=== PATIENT | female | born 1985 | race Two or more races ===

== ENCOUNTER → 2022-12-13 11:30 | Outpatient (BNVA) | payer OTHER, SELFPAY | PROVIDERS: Visit Provider Surgery ==

== ENCOUNTER → 2023-01-09 09:58 | Outpatient (BNVA) | payer OTHER, SELFPAY | PROVIDERS: Visit Provider Physician Assistant Surgical | DX: E66.01 Morbid (severe) obesity due to excess calories (principal); R06.83 Snoring; Z68.42 Body mass index [BMI] 45.0-49.9, adult | CPT/HCPCS: 99202 ==

== ENCOUNTER 2023-01-10 11:41 | Outpatient (REF) | payer OTHER, SELFPAY ==
[2023-01-15 05:17] LABS: Vitamin A 45 mcg/dL (38-98)
[2023-01-15 14:53] LABS: Vitamin B1 9 nmol/L (8-30)
[2023-01-16 09:08] LABS: H Pylori Breath Test Negative (Negative)
== END 2023-01-10 11:42 | disposition home or self-care (01) ==
LOC: HO.LAB 11:41
PROVIDERS: Visit Provider Physician Assistant Surgical
DX: Z11.2 Encounter for screening for other bacterial diseases (principal); E66.01 Morbid (severe) obesity due to excess calories
CPT/HCPCS: 36415; 80053; 80061; 82306; 82607; 82728; 82746; 83013; 83036; 83525; 83540; 83970; 84425; 84443; 84590; 84630; 85025; 86140; 99211

== ENCOUNTER 2023-01-13 09:03 | Outpatient (REF) | payer OTHER, SELFPAY ==
--- NOTE | ~2023-01-13 | US_ITS ---
EXAMINATION: US COMPLETE ABDOMEN WITH LIVER ELASTOGRAPHY CLINICAL INFORMATION: Obesity. COMPARISON: None available. TECHNIQUE: Real-time imaging of the abdominal viscera. Noninvasive ultrasound liver fibrosis assessment is performed using Leigha ElastPQ point quantification shear wave elastography (2D-SWE) with a C5-2 MHz transducer. Multiple elastography samples are obtained. Imaging is limited by body habitus. FINDINGS: PANCREAS: Normal. The visualized pancreatic head and body are normal in appearance. The remainder of the pancreas is obscured from visualization by the overlying bowel gas. ABDOMINAL AORTA: The proximal, middle, and distal aortic segments are normal in caliber. INFERIOR VENA CAVA: Visualized portions are normal. LIVER: The liver demonstrates normal size, contour and generally increased echogenicity. No focal lesion or intrahepatic biliary duct dilatation. The right lobe measures 17.2 cm in length. The left lobe measures 11.7 cm in length. Portal flow is towards the liver (hepatopetal). Shear wave liver elastography median stiffness is 1.32 m/s (reference: normal median stiffness is 1.3 m/s or less). IQR/median stiffness to assess sampling precision is 0.09 (reference: good quality data set is IQR/median stiffness of 0.15 or less). GALLBLADDER: Normal. The gallbladder is physiologically distended without evidence of stones, sludge, polyps, wall thickening or pericholecystic fluid. COMMON BILE DUCT: Normal in caliber measuring 0.5 cm in diameter. RIGHT KIDNEY: Normal. No hydronephrosis. No renal calculi or focal parenchymal lesions. The kidney measures 12.9 cm in maximum dimension. LEFT KIDNEY: Normal. No hydronephrosis. No renal calculi or focal parenchymal lesions. The kidney measures 12.5 cm in maximum dimension. SPLEEN: Normal. The spleen measures 11.7 cm in maximum dimension. FREE FLUID: None. US/US abdomen comp w elastography IMPRESSION: 1. There is generalized increase in hepatic echotexture, consistent with fatty infiltration or hepatocellular disease. Please correlate clinically. No focal hepatic mass or intrahepatic biliary dilatation is seen. 2. Liver elastography: In the absence of other known clinical signs, measurements rule out compensated advanced chronic liver disease. If there are known clinical signs, further testing may be needed for confirmation. REFERENCE: Society of Radiologists in Ultrasound Liver Stiffness Thresholds (2020): LIVER STIFFNESS THRESHOLDS: *Liver Stiffness equal or less than 1.3 m/s: High probability of being normal. *Liver Stiffness less than 1.7 m/s: In the absence of other known clinical signs, rules out compensated advanced chronic liver disease. *Liver Stiffness 1.7-2.1 m/s: Suggestive of compensated advanced chronic liver disease but need further test for confirmation. *Liver Stiffness over 2.1 m/s: Rules in compensated advanced chronic liver disease. *Liver Stiffness over 2.4 m/s: Suggestive of clinically significant portal hypertension. QUALITY OF DATA SET: *IQR/Median value equal or less than 0.15 implies a quality data set. *IQR/Median value over 0.15 implies a poor quality data set. SIGNIFICANT CHANGE FROM PRIOR EXAM: Significant change if liver stiffness measurement is 10% or greater from prior exam. OTHER CONSIDERATIONS: The stage of liver fibrosis may be overestimated in the setting of acute hepatitis, liver inflammation, elevated liver function tests, hepatic vascular congestion, obstructive cholestasis, non-fasting state, and infiltrative diseases such as amyloidosis and lymphoma. In some patients with NAFLD, the liver stiffness thresholds for compensated advanced chronic liver disease may be lower. In causes other than viral hepatitis and NAFLD, liver stiffness thresholds are not well established.
--- NOTE | ~2023-01-13 | XR_ITS ---
EXAMINATION: XR CHEST CLINICAL INFORMATION: Morbid obesity. Preop. COMPARISON: None available. TECHNIQUE: 2 views of the chest were obtained. FINDINGS: Lung volumes are diminished resulting in crowding of bronchovascular structures. There may be subsegmental atelectasis within the left lower lobe. The lungs are otherwise clear. Cardiomediastinal contours are unremarkable. No pleural effusion or pneumothorax there is dextroscoliotic curvature of the midthoracic spine. Structures of the chest wall are intact. XR/XR chest 2V IMPRESSION: Possible subsegmental atelectasis in the left lower lobe, otherwise no acute process.
== END 2023-01-13 09:04 | disposition home or self-care (01) ==
LOC: HO.US 09:03
PROVIDERS: Visit Provider Physician Assistant Surgical
DX: E66.01 Morbid (severe) obesity due to excess calories (principal)
CPT/HCPCS: 71046; 76705; 76981

== ENCOUNTER → 2023-01-17 07:13 | Outpatient (REF) | payer OTHER, SELFPAY ==
--- NOTE | 2023-01-17 07:19 | ECG_ITS ---
Test Reason : e66.01 Blood Pressure : / mmHG Vent. Rate : 066 BPM Atrial Rate : 066 BPM P-R Int : 200 ms QRS Dur : 086 ms QT Int : 414 ms P-R-T Axes : 050 004 044 degrees QTc Int : 434 ms Normal sinus rhythm Cannot rule out Anterior infarct , age undetermined Abnormal ECG No previous ECGs available Referred By: Norman Higginbotham Electronically Signed By:JHONATHAN PRICE MD
== END ==
LOC: HO.CARD 07:13
PROVIDERS: PCP Internal Medicine; Visit Provider Physician Assistant Surgical
DX: E66.01 Morbid (severe) obesity due to excess calories (principal)
CPT/HCPCS: 93005

== ENCOUNTER → 2023-01-17 07:19 | Outpatient (BNV) | payer OTHER, SELFPAY | PROVIDERS: PCP Internal Medicine; Visit Provider Internal Medicine Cardiovascular Disease | DX: R94.31 Abnormal electrocardiogram [ECG] [EKG] (principal) | CPT/HCPCS: 93010 ==

== ENCOUNTER 2023-01-20 14:00 | Outpatient (AMB) | payer OTHER, SELFPAY ==
--- NOTE | 2023-01-20 14:21 | A.OFFWM_ITS ---
Intake Intake Visit Reasons: VIDEO Intake Allergies shellfish derived Allergy (Mild, Verified 01/10/23 12:11) Hives [facility] Surgical History Hx of section Family History Mother Diabetes Father No problems noted. Brother No problems noted. Sister No problems noted. Son Asthma Daughter No problems noted. Daughter No problems noted. Daughter No problems noted. Social History Alcohol intake: current Alcohol intake frequency: holidays/special occasions only Patient Tobacco Use Status: Never used Tobacco Behavioral Health Assessment Weight Management Therapy Therapy Notes Details PT is a 37 year old female who presents for initial assessment as part of surgical Weight management program. Presenting Concerns0 Referral Source WMP Provider. Reason for referral Completion of behavioral health assessment as part of process for weight-loss surgery. Precipitating Event Obesity. Living Situation Current Living Situation Rent At risk of losing current housing? No Satisfied with current living situation? Yes Comments Pt lives with 4 children. Food/Weight/Diet Expectations of change PT wants to be down to her expected BMI. Goal is to lose 10% of your weight before surgery, which is about 27 lbs. Ultimate weight goal: 250 lbs. before surgery History/Relationship with food PT reports she doesn't have a strong appetite. She tends to skip meals, always have dinner. Dinner is basically composed by protein, Carbs and veggies. Sometimes they have more than 1 carb at meal. Sometimes she snacks during the day might have a granola bar, cheese and crackers, a yogurt. She likes cookies, ice cream, cake. Has sweets 3-4 times at week. History/Relationship with weight She has always been overweight. After last , Jun 2020 she noticed her weight was the highest. History/Relationship with dieting PT has tried low-carb diet, Atkins, weight watchers (effective but got too expensive), beach body. She reports she tries programs for couple months. Got down to 260Lb using the low-carb diet, gained all the weight back once went back to old habits. Binge Eating Do you frequently eat large amounts of food in short periods of time, not feeling physically hungry? No Do you feel out of control when you eat a large amount of food in a short period of time? No Do you eat large amounts of food rapidly and typically alone? No Night Eating Do you wake up at least once during the night to eat? No If you wake up in the night, do you find that it is necessary to eat something in order to fall back asleep? No Do you have little or no appetite in the morning and feel very hungry in the evening, often overeating between dinner and when you go to bed? No Social History Family history and relationship PT is single. She has 2 siblings, they have a good relationship. Mom is alive, They are very close. Dad . 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 (12, 3, set of 2y/o twins). Developmental history and status None reported. Social support Mother, sister. Community support Providers. Moravian/Spirituality None. Cultural/Ethnic information Mixed, /. Legal Involvement and History Current or historical involvement with the legal system? None reported. Education Highest grade completed Associate degreed. Preferred learning style Auditory, Verbal, Written, Learn by doing and Visual Currently enrolled in educational program? No Interested in further educational program? Yes Educational Interests/Skills Wants to become a mental health clinician. 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 ) Wants help to find employment? No Meaningful activities Family activities, nails/hair/lashes(beauty self-care). Financial Situation Describe current financial situation Comfortable and Occasional struggle Financial assistance? Food [employer]? No Mental Health and Addiction Treatment0 Current/Past substance abuse? No Comments Cannabis use. Smokes/edibles 1 at day, 3-4 times at week. Current/Past addictive behavior concerns? No Psychiatric history None reported. Medical and Physical Health Summary Additional Medical History not covered in history None reported. Sexual History concerns None reported. Physical exam in the last year? Yes Pain Screening Current pain? No Pain in the last few months? Yes (Legs, occasionally back pain. ) Medications Is the patient compliant with medications? Yes Does the patient have Mayer Guardian in place? Not applicable Does the patient use complimentary health approaches? No Trauma/Abuse History History of trauma? No Questionnaires PHQ-9 Over the last 2 weeks, how often have you been bothered by any of the following problems? 1. Little interest or pleasure in doing things: not at all 2. Feeling down, depressed, or hopeless: not at all 3. Trouble falling or staying asleep, or sleeping too much: not at all 4. Feeling tired or having little energy: not at all 5. Poor appetite or overeating: not at all 6. Feeling bad about yourself - or that you are a failure or have let yourself or your family down: not at all 7. Trouble concentrating on things, such as reading the newspaper or watching television: not at all 8. Moving or speaking so slowly that other people could have noticed. Or the opposite - being so fidgety or restless that you have been moving around a lot more than usual: not at all 9. Thoughts that you would be better off or of hurting yourself in some way: not at all Total score: 0 Depression Screening Interpretation: Negative Source: Developed by Drs. Kodak Mark, Arin Barnard, Atilio Short and colleagues, with an educational tyrone from [employer]. Binge Eating Scale Group 1 A. I don't feel self-conscious about my wt. or body size when I'm with others. B. I feel concerned about how I look to others, but it normally does not make me fell disappointed with myself C. I do get self-conscious about my appearance and wt. which makes me feel disappointed in myself. D. I feel very self-conscious about my wt. and frequently I feel intense shame and disgust for myself. I try to avoid social contacts because of my self- consciousness. Response Group 1: D Group 2 A. I don't have any difficulty eating slowly in the proper manner. B. Although I seem to gobble down foods, I don't end up feeling stuffed because of eating to much. C. At times, I tend to eat quickly and then, I feel uncomfortably full afterwards. D. I have the habit of bolting down my food, without really chewing it. When this happens I usually feel uncomfortably stuffed because I've eaten to much. Response Group 2: A Group 3 A. I feel capable to control my eating urges when I want to. B. I feel like I have failed to control my eating more than the average person. C. I feel utterly helpless when it comes to feeling in control of my eating urges. D. Because I feel so helpless about controlling my eating I have become very desperate about trying to get control. Response Group 3: D Group 4 A. I don't have the habit of eating when I'm bored. B. I sometimes eat when I'm bored, but often I'm able to get busy and get my mind off food. C. I have a regular habit of eating when I'm bored, but occasionally, I can use some other activity to get my mind off eating. D. I have a strong habit of eating when I'm bored. Nothing seems to help me breath the habit. Response Group 4: B Group 5 A. I'm usually physically hungry when I eat something. B. Occasionally, I eat something on impulse even though I really am not hungry. C. I have the regular habit of eating foods, that I might not really enjoy, to satisfy a hungry feeling even though physically, I don't need the food. D. Although I'm not physically hungry, I get a hungry feeling in my mouth that only seems to be satisfied when I eat a food, like sandwich, that fills my mouth. Sometimes, when I eat the food to satisfy my mouth hunger, I then spit the food out so I won't gain weight. Response Group 5: A Group 6 A. I don't feel any guilt or self-hate after I overeat. B. After I overeat, occasionally I feel guilt or self-hate. C. Almost all the time I experience strong guilt or self-hate after I overeat. Response Group 6: C Group 7 A. I don't lose total control of my eating when dieting even after periods when I overeat. B. Sometimes when I eat a forbidden food on a diet, I feel like I blew it and eat even more. C. Frequently, I have the habit of saying to myself, I've blown it now, why not go all the way, when I overeat on a diet. When that happens I eat more. D. I have a regular habit of starting a strict diets for myself but I break the diets by going on an eating binge. My life seems to be either a feast or famine. Response Group 7: C Group 8 A. I rarely eat so much food that I feel uncomfortably stuffed afterwards. B. Usually about once a month, I each such a quantity of food, I end up feeling very stuffed. C. I have regular periods during the month when I eat large amounts of food, either at mealtime or at snacks. D. I eat so much food that I regularly feel quite uncomfortable after eating and sometimes a bit nauseous. Response Group 8: B Group 9 A. My level of calorie intake does not go up very high or go down very low on a regular basis. B. Sometimes after I overeat, I will try to reduce my caloric intake to almost nothing to compensate for the excess calories I've eaten. C. I have a regular habit of overeating during the night. It seems that my routine is not to be hungry in the morning but overeat in the evening. D. In my adult years, I have had week-long periods where I practically starve myself. This follows periods when I overeat. It seems I live a life of either feast or famine. Response Group 9: B Group 10 A. I usually am able to stop eating when I want to. I know when enough is enough. B. Every so often, I experience a compulsion to eat which I can't seem to control. C. Frequently, I experience strong urges to eat which I seem unable to control, but at other times I can control my eating urges. D. I feel incapable of controlling urges to eat. I have a fear of not being able to stop eating voluntarily. Response Group 10: C Group 11 A. I don't have any problem stopping eating when I feel full. B. I usually can stop eating when I feel full but occasionally overeat leaving me feeling uncomfortably stuffed. C. I have a problem stopping eating once I start and usually I feel uncomfortably stuffed after I eat a meal. D. Because I have a problem not being able to stop eating when I want, I sometimes have to induce vomiting to relieve my stuffed feeling. Response Group 11: B Group 12 A. I seem to eat just as much when I'm with others, Family social gatherings as when I'm by myself. B. Sometimes, when I'm with other persons, I don't eat as much as I want to eat because I'm self-conscious about my eating. C. Frequently, I eat only a small amount of food when others are present, because I'm very embarrassed about my eating. D. I feel so ashamed about overeating that I pick times to overeat when I know no one will see me. I feel like a closet eater. Response Group 12: C Group 13 A. I eat three meals a day with only an occasional between meal snack. B. I eat 3 meals a day, but I also normally snack between meals. C. When I am snacking heavily, I get in the habit of skipping regular meals. D. There are regular periods when I seem to be continually eating, with no planned meals. Response Group 13: A Group 14 A. I don't think much about trying to control unwanted eating urges. B. At least some of the time, I feel my thoughts are pre-occupied with trying to control my eating urges. C. I feel that frequently I spend much time thinking about how much I ate or about trying not to eat anymore. D. It seems to me that most of my waking hours are pre-occupied by thoughts about eating or not eating. I feel like I'm constantly struggling not to eat. Response Group 14: B Group 15 A. I don't think about food a great deal. B. I have strong craving for food but they last only for brief periods of time. C. I have days when I can't seem to think about anything else but food. D. Most of my days seem to be pre-occupied with thoughts about food. I feel like I live to eat. Response Group 15: B Group 16 A. I usually know whether or not I'm physically hungry. I take the right portion of food to satisfy me. B. Occasionally, I feel uncertain about knowing whether or not I'm physically hungry. A these times it's hard to know how much food I should take to satisfy me. C. Even though I might know how many calories I should eat, I don't have any idea what is a normal amount of food for me. Response Group 16: B Binge Eating Score: 21 Score less than 17 Minimal Risk Score between 18-26 Moderate Risk Score between 27-46 High Risk Assessment & Plan Assessment & Plan (1) Eating disorder: Code(s): F50.9 - Eating disorder, unspecified Qualifiers: Eating disorder type: unspecified eating disorder Qualified Code(s): F50.9 - Eating disorder, unspecified Plan Pt is cleared from the behavioral health standpoint but will have a f/up with provider to monitor adjustment to described challenges with program expectations. F/up in 1 month. Telehealth Telehealth Location of provider rendering services: other (home office. [place] Location of patient: address on file Patient Identification confirmed using: Name, : Yes Telehealth method: video Patient verbally consented to treatment: Yes Patient verbally consented to billing insurance company: Yes Patient informed of any privacy concerns related to visit: Yes Minutes spent on Phone/Video with Pt.: 60 Coding Level of Care Code New Pt Tele Psy Diag Cinthyaal ([id number]) Patient Type New Diagnoses Eating disorder F50.9 Eating disorder type: unspecified eating disorder Time Spent (min) 60
== END 2023-01-20 15:58 | disposition home or self-care (01) ==
LOC: HO.HBST 14:22
PROVIDERS: PCP Internal Medicine; Referring Provider Physician Assistant Surgical; Visit Provider Counselor Mental Health
DX: F50.9 Eating disorder, unspecified (principal)
CPT/HCPCS: 90791

== ENCOUNTER → 2023-01-20 14:00 | Outpatient (BNVA) | payer OTHER, SELFPAY | PROVIDERS: PCP Internal Medicine; Referring Provider Physician Assistant Surgical; Visit Provider Counselor Mental Health ==

== ENCOUNTER → 2023-01-27 07:59 | Outpatient (REF) | payer OTHER, SELFPAY ==
--- NOTE | 2023-01-27 08:02 | CA_ITS ---
Acquisition Time: 2023-01-27 08:18:15 Total Exercise Time: 00:06:22 Test Indications: Abnormal ECG Medications: LEVOTHYROXINE Protocol: SUSIE Max HR: 164 BPM 88% of Pred: 185 BPM Max BP: 148/082 mmHG Max Work Load: 7.3 METS Exercise stress test exercise 6 min 22 sec of Susie protocol, achieivng 88% MPHR, 7.23 METs with moderate SOB, no chest discomfort, with isolated PVCs, with normotensive response to exercise. Breathing returned to normal with rest. Test reviewed with Dr Rose. Referred By: Norman Higginbotham Overread By: Aleah Landeros
== END ==
LOC: HO.CARD 07:59
PROVIDERS: PCP Internal Medicine; Visit Provider Physician Assistant Surgical
DX: R94.31 Abnormal electrocardiogram [ECG] [EKG] (principal)
CPT/HCPCS: 93017

== ENCOUNTER → 2023-01-27 08:02 | Outpatient (BNV) | payer OTHER, SELFPAY | PROVIDERS: PCP Internal Medicine; Visit Provider Nurse Practitioner | DX: R94.31 Abnormal electrocardiogram [ECG] [EKG] (principal) | CPT/HCPCS: 93016; 93018 ==

== ENCOUNTER → 2023-02-11 15:50 | Outpatient (BNVA) | payer OTHER, SELFPAY | PROVIDERS: PCP Internal Medicine; Referring Provider Physician Assistant Surgical; Visit Provider Dietitian, Registered ==

== ENCOUNTER 2023-02-12 07:56 | Outpatient (REF) | payer OTHER, SELFPAY ==
--- NOTE | ~2023-02-12 | FL_ITS ---
EXAMINATION: XR FLUOROSCOPY UPPER GI WITH AIR CLINICAL INFORMATION: Obesity COMPARISON: None available. TECHNIQUE: Upper GI was performed using thin and thick barium and effervescent granules FINDINGS: Esophageal motility is normal. There is mild gastroesophageal reflux. No significant hernia is seen. The stomach and duodenum are normal. No fold thickening, mass, ulcer or stricture. FLUOROSCOPY TIME: 0.4 minutes DOSE AREA PRODUCT: 4.8 Ybarra per centimeter square. Total dose 21 mgy. 20 saved fluoroscopic images. FL/FL upper GI w air IMPRESSION: Gastroesophageal reflux otherwise unremarkable exam.
== END 2023-02-12 07:57 | disposition home or self-care (01) ==
LOC: HO.XRAY 07:56
PROVIDERS: PCP Internal Medicine; Visit Provider Physician Assistant Surgical
DX: E66.01 Morbid (severe) obesity due to excess calories (principal); K21.9 Gastro-esophageal reflux disease without esophagitis
CPT/HCPCS: 74246

== ENCOUNTER → 2023-02-12 07:57 | Outpatient (BNV) | payer OTHER, SELFPAY | PROVIDERS: PCP Internal Medicine; Visit Provider Radiology Diagnostic Radiology | DX: E66.01 Morbid (severe) obesity due to excess calories (principal); Z01.818 Encounter for other preprocedural examination | CPT/HCPCS: 74246 ==

== ENCOUNTER 2023-02-17 12:00 | Outpatient (AMB) | payer OTHER, SELFPAY ==
--- NOTE | 2023-02-17 12:06 | MHC.WMTHER ---
Intake Intake Visit Reasons: VIDEO f/u Allergies shellfish derived Allergy (Mild, Verified 01/10/23 12:11) Hives [facility] Surgical History Hx of section Family History Mother Diabetes Father No problems noted. Brother No problems noted. Sister No problems noted. Son Asthma Daughter No problems noted. Daughter No problems noted. Daughter No problems noted. Social History Alcohol intake: current Alcohol intake frequency: holidays/special occasions only Patient Tobacco Use Status: Never used Tobacco Behavioral Health Assessment Weight Management Therapy Therapy Notes Details PT presents for a f/up. She had assessment on 01/20. PT reports struggling to follow meal plan as she doesn't have a set schedule for brakes/meals. INTERVENTIONS: Processed barriers to stick to plan/program expectations. Problem solving exercise, supporting client to identify strategies/tips such as set an alarm for meals, smart watch to track exercise/physical activity. Gentle challenge around expectations, her goals/current behaviors. RESPONSE: PT was active and cooperative. PLAN: PT is cleared from the standpoint, however it is recommended a f/up in about a month to support with habit building/accountability. Presenting Concerns Referral Source P Provider. Reason for referral Completion of behavioral health assessment as part of process for weight-loss surgery. Precipitating Event Obesity. Living Situation Current Living Situation Rent At risk of losing current housing? No Satisfied with current living situation? Yes Comments Pt lives with 4 children. Food/Weight/Diet Expectations of change PT wants to be down to her expected BMI. Goal is to lose 10% of your weight before surgery, which is about 27 lbs. Ultimate weight goal: 250 lbs. before surgery History/Relationship with food PT reports she doesn't have a strong appetite. She tends to skip meals, always have dinner. Dinner is basically composed by protein, Carbs and veggies. Sometimes they have more than 1 carb at meal. Sometimes she snacks during the day might have a granola bar, cheese and crackers, a yogurt. She likes cookies, ice cream, cake. Has sweets 3-4 times at week. History/Relationship with weight She has always been overweight. After last , Jun 2020 she noticed her weight was the highest. History/Relationship with dieting PT has tried low-carb diet, Atkins, weight watchers (effective but got too expensive), beach body. She reports she tries programs for couple months. Got down to 260Lb using the low-carb diet, gained all the weight back once went back to old habits. Binge Eating Do you frequently eat large amounts of food in short periods of time, not feeling physically hungry? No Do you feel out of control when you eat a large amount of food in a short period of time? No Do you eat large amounts of food rapidly and typically alone? No Night Eating Do you wake up at least once during the night to eat? No If you wake up in the night, do you find that it is necessary to eat something in order to fall back asleep? No Do you have little or no appetite in the morning and feel very hungry in the evening, often overeating between dinner and when you go to bed? No Social History Family history and relationship PT is single. She has 2 siblings, they have a good relationship. Mom is alive, They are very close. Dad . 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 (12, 3, set of 2y/o twins). Developmental history and status None reported. Social support Mother, sister. Community support Providers. Episcopalian/Spirituality None. Cultural/Ethnic information Mixed, /. Legal Involvement and History Current or historical involvement with the legal system? None reported. Education Highest grade completed Associate degreed. Preferred learning style Auditory, Verbal, Written, Learn by doing and Visual Currently enrolled in educational program? No Interested in further educational program? Yes Educational Interests/Skills Wants to become a mental health clinician. 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 ) Wants help to find employment? No Meaningful activities Family activities, nails/hair/lashes(beauty self-care). Financial Situation Describe current financial situation Comfortable and Occasional struggle Financial assistance? Food [place] Service Service? No Mental Health and Addiction Treatment Current/Past substance abuse? No Comments Cannabis use. Smokes/edibles 1 at day, 3-4 times at week. Current/Past addictive behavior concerns? No Psychiatric history None reported. Medical and Physical Health Summary Additional Medical History not covered in history None reported. Sexual History concerns None reported. Physical exam in the last year? Yes Pain Screening Current pain? No Pain in the last few months? Yes (Legs, occasionally back pain. ) Medications Is the patient compliant with medications? Yes Does the patient have Mayer Guardian in place? Not applicable Does the patient use complimentary health approaches? No Trauma/Abuse History History of trauma? No Telehealth Telehealth Location of provider rendering services: other (home office. [place] Location of patient: other (Work. [place]) Patient Identification confirmed using: Name, : Yes Telehealth method: video Patient verbally consented to treatment: Yes Patient verbally consented to billing insurance company: Yes Patient informed of any privacy concerns related to visit: Yes Minutes spent on Phone/Video with Pt.: 45 Coding Level of Care Code Established Pt Tele Psytx 45 mins ([id number]) Patient Type Established Diagnoses Time Spent (min) 30 Comment 12:00-12:45pm
== END 2023-02-17 13:04 | disposition home or self-care (01) ==
LOC: HO.HBST 12:13
PROVIDERS: PCP Internal Medicine; Visit Provider Counselor Mental Health
DX: Z01.818 Encounter for other preprocedural examination (principal); Z13.39 Encounter for screening examination for other mental health and behavioral disorders; E66.01 Morbid (severe) obesity due to excess calories; Z68.42 Body mass index [BMI] 45.0-49.9, adult
CPT/HCPCS: 90834

== ENCOUNTER → 2023-02-17 12:00 | Outpatient (BNVA) | payer OTHER, SELFPAY | PROVIDERS: PCP Internal Medicine; Visit Provider Counselor Mental Health ==

== ENCOUNTER → 2023-02-19 08:59 | Outpatient (REF) | payer OTHER, SELFPAY | LOC: HO.SL 08:59 | PROVIDERS: PCP Internal Medicine; Visit Provider Physician Assistant Surgical | DX: E66.01 Morbid (severe) obesity due to excess calories (principal); R06.83 Snoring | CPT/HCPCS: 95806 ==

== ENCOUNTER → 2023-02-19 09:11 | Outpatient (BNV) | payer OTHER, SELFPAY | PROVIDERS: PCP Internal Medicine; Visit Provider Internal Medicine | DX: R06.83 Snoring (principal) | CPT/HCPCS: 95806 ==

== ENCOUNTER 2023-03-24 13:32 | Outpatient (AMB) | payer OTHER, SELFPAY ==
--- NOTE | 2023-03-24 13:01 | A.OFFVIS_ITS ---
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 They were last seen in the office on 01/09/23, recorded weight at that time was 277 pounds, with a BMI of 47.5. Today's weight is 266 pounds and BMI is 45.7. There has been a weight loss of 11 pounds since initiating the surgical weight loss program on 01/09/23 with a total body weight loss of 3.97 %. Pre op work up completed as follows: SWL classes:? 08/14 BH appts: cleared 01/20/23 ? ? RD appts: 04/07/23 Labs: 01/10/23-low D, B12:413 H. pylori: -neg CXR: 01/20/23-? left subsegmental atelectasis EK01/17/23-cannot r/o anterior infarct. Exercise stress test 01/27/23-normal. 03/02/23 sleep study normal ABD U/S: 01/13/23-fatty liver UGI: 02/12/23-GERD The patient reports she has not been following the meal plan as directed. She is not drinking the protein shakes. She states she doesn't like them. She is eating the ZP bar. She is a can of tuna, one slice of salmon. She is not m easuring by forkfuls. She states she didn't like the Orgain too much. Requests a new plan Current meal plan includes: Not following any plan Drinking 64-96 oz of water Current exercise plan includes: walking outside, 3 x per week. not tracking calories, PFSH Surgical History Hx of section Family History Mother Diabetes Father No problems noted. Brother No problems noted. Sister No problems noted. Son Asthma Daughter No problems noted. Daughter No problems noted. Daughter No problems noted. Social History Alcohol intake: current Alcohol intake frequency: holidays/special occasions only Patient Tobacco Use Status: Never used Tobacco Assessment & Plan Assessment & Plan (1) Morbid obesity: Code(s): E66.01 - Morbid (severe) obesity due to excess calories Plan: Change meal plan to: 3 Premier Protein shakes ([employer], [employer], [employer], [employer]) First shake (2 scoops in 8 oz low fat unsweetened almond milk) at 7am-9am, Second shake (1 scoops in 8 oz low fat unsweetened almond milk) at 11am-1pm 1 protein bar (Zone Perfect or Zone Macro bars at [employer], [facility], or [employer]) at 3pm- 5pm. Dinner at 6pm (8 forks of protein and 8 forks of salad/vegetables). Another shake with 1/2 scoop in 8 oz unsweetened almond milk at 8pm-10pm. Increase exercise and track calories Discussed the importance of following the plans and communicating if any issues, she had not been communicating and not following plans. rtc 3 weeks. reminded of upcoming appts Telehealth Telehealth Location of provider rendering services: practice address Location of patient: other Patient Identification confirmed using: Name, : Yes Telehealth method: video Patient verbally consented to treatment: Yes Patient verbally consented to billing insurance company: Yes Patient informed of any privacy concerns related to visit: Yes Minutes spent on Phone/Video with Pt.: 20 Coding Level of Care Code Tele Est Pt Level 4 (83217) Diagnoses Morbid obesity E66.01 Time Spent (min) 35
[2023-03-24 13:02] VITALS: BMI 45.7
== END 2023-03-24 13:38 | disposition home or self-care (01) ==
LOC: HO.HBS 13:32
PROVIDERS: PCP Internal Medicine; Visit Provider Physician Assistant Surgical
DX: E66.01 Morbid (severe) obesity due to excess calories (principal); Z68.42 Body mass index [BMI] 45.0-49.9, adult
CPT/HCPCS: 99214

== ENCOUNTER → 2023-03-24 13:32 | Outpatient (BNVA) | payer OTHER, SELFPAY | PROVIDERS: PCP Internal Medicine; Visit Provider Physician Assistant Surgical ==

== ENCOUNTER 2023-04-07 09:29 | Outpatient (AMB) | payer OTHER, SELFPAY ==
--- NOTE | 2023-04-07 09:16 | MHC.AMNUTRGE ---
Intake VS Expanded 04/07/23 09:23 Height 5 ft 4 in Weight 264 lb BMI 45.3 Intake Visit Reasons: VIDEO Initial Nutrition [facility] Personnel Officer Required: No Allergies shellfish derived Allergy (Mild, Verified 01/10/23 12:11) Hives HPI Nutrition Presentation Reason for consult elevated BMI Diet Assmnt Details went on vacation when she first started the program and fell off Is using premier protein powder with water 2 scoops powder in each shake . does not like the bars 2-4 shakes per day tunafish on a wrap, eggs Asks about the quickest way to lose weight, explained how the nutrition plan and exercise plans accomplish body fat losss when done properly Exercise; has 4 children (3 under 3 years old) and likes to go for walks with them. 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 Doens't do it in the colder temps. She is planning to enroll kids in after school program so she will have time to go to the gym . [facility] online classes: none, completely forgot Dietary counseling reduction Diagnosis Nutrition problem #1 overweight/obesity As related to (etiology) #1 excess energy intake and physical inactivity As evidenced by (sign/symptom) #1 high BMI Monitoring/Goals Nutrition problem monitoring total energy intake, level of knowledge/skill, total PRO intake, total CHO intake and weight Outcome progress not met Learning/Education Readiness to learn fair Stages of change contemplation Educational materials provided Yes Most Recent Diabetes Results: No Data to Display [facility] Surgical History Hx of section Family History Mother Diabetes Father No problems noted. Brother No problems noted. Sister No problems noted. Son Asthma Daughter No problems noted. Daughter No problems noted. Daughter No problems noted. Social History Alcohol intake: current Alcohol intake frequency: holidays/special occasions only Patient Tobacco Use Status: Never used Tobacco Assessment & Plan Assessment & Plan (1) Morbid obesity: Code(s): E66.01 - Morbid (severe) obesity due to excess calories Patient Instructions: Encouraged being consistent , begin a consistent exercise routine. finish classes. f/u 05/07 1:30pm OV Telehealth Telehealth Location of provider rendering services: practice address Location of patient: address on file Patient Identification confirmed using: Name, : Yes Telehealth method: video Patient verbally consented to treatment: Yes Patient verbally consented to billing insurance company: Yes Patient informed of any privacy concerns related to visit: Yes Minutes spent on Phone/Video with Pt.: 30 Coding Level of Care Code Nutr Indiv Intake (16940) Diagnoses Morbid obesity E66.01 Time Spent (min) 30
[2023-04-07 09:23] VITALS: BMI 45.3
== END 2023-04-07 09:33 | disposition home or self-care (01) ==
LOC: HO.HBS 09:29
PROVIDERS: PCP Internal Medicine; Visit Provider Dietitian, Registered
DX: E66.01 Morbid (severe) obesity due to excess calories (principal)

== ENCOUNTER → 2023-04-07 09:29 | Outpatient (BNVA) | payer OTHER, SELFPAY | PROVIDERS: PCP Internal Medicine; Visit Provider Dietitian, Registered | DX: E66.01 Morbid (severe) obesity due to excess calories (principal); Z68.42 Body mass index [BMI] 45.0-49.9, adult | CPT/HCPCS: 97802 ==